=== PATIENT | female | born 1970 | race Caucasian/White ===

== ENCOUNTER 2016-11-01 18:37 | Emergency (ER) | payer OTHER ==
[~2016-11-01] VITALS: Ht 160 cm; Wt 76.5 kg
[2016-11-01 18:39] VITALS: Ht 160 cm; Wt 76.5 kg
--- NOTE | 2016-11-01 22:39 | ERA ---
ER Documentation Chief Complaint Date/Time DATE: 11/01/16 TIME: 22:38 Chief Complaint left breast pain HPI The patient is a 46-year-old female, presenting to the ER because of left breast pain intermittently for the last 2 weeks. She had a normal mammogram about a year ago, she recently had an ultrasound about a month ago that result is unclear She usually took aspirin which relieved the pain. She denies fever , chills, neck pain, chest pain with exertion or vomiting or diaphoresis, dyspnea, abdominal pain, vomiting, dysuria, diarrhea. She does not smoke nor drink Past medical/surgical history: None ROS All systems reviewed and are negative except as per history of present illness. Medications Home Meds Active Scripts Hydrocodone/Acetaminophen ([place] 5-325 Tablet) 1 Each Tablet, 1 TAB PO Q6H Y for PAIN, #7 TAB Prov:BETH GROVER MD 11/02/16 Ibuprofen* (Motrin*) 600 Mg Tab, 600 MG PO Q6H Y for PAIN AND OR ELEVATED TEMP, #20 TAB Prov:BETH GROVER MD 11/02/16 Allergies Allergies: Coded Allergies: No Known Allergy (Unverified , 11/01/16) Physical Exam Vitals Vital Signs Date Time Temp Pulse Resp B/P Pulse Ox O2 Delivery O2 Flow Rate FiO2 11/02/16 01:00 63 142/86 100 Room Air 11/02/16 00:00 65 144/68 99 Room Air 11/01/16 23:06 64 19 149/80 100 Room Air 11/01/16 18:39 99.4 70 20 143/75 99 Physical Exam Const: No acute distress. Head: Atraumatic. Eyes: Normal Conjunctiva. ENT: Normal External Ears, Nose and Mouth. Neck: Full range of motion. No meningismus. Resp: Clear to auscultation bilaterally. Cardio: Regular rate and rhythm, no murmurs. Left nipple is without any discharge, left breast is not erythematous nor warm to touch. However it is very tender therefore the exam is very limited and she did not want to continue Abd: Soft, non distended, normal bowel sounds, non tender. Skin: No petechiae or rashes. Back: No midline or flank tenderness. Ext: No cyanosis, or edema. Neur: Awake and alert. No focal deficit Psych: Normal Mood and Affect. Procedures/MDM EKG: Read by emergency physician Rate/Rhythm: Normal Sinus Rhythm 73 beats/min QRS, ST, T-waves: No ST elevation, no T inversion, LVH, nonspecific T abnormality Impression: Abnormal EKG [place] [id number] Radiology Main Line: [phone] DIAGNOSTIC IMAGING REPORT Patient: MARIA E HUSTON : 1970 Age: 46 Sex: F MR #: [id number] DOS: 11/01/16 0000 Ordering MD: BETH GROVER MD Location: E/R Room/Bed: PROCEDURE: CHEST - 1 VIEW CLINICAL INDICATION: 46-year-old female with chest pain. TECHNIQUE: A single frontal AP upright view of the chest was performed portably. The images were reviewed on a PACS workstation. COMPARISON: None. FINDINGS: There is a shallow inspiration accentuating the heart size. Accounting for this , the cardiomediastinal silhouette is mildly prominent. The lung apices are incompletely visualized. There is right lower lung zone subsegmental atelectasis. There is no evidence for an infiltrate. There is no evidence for congestive heart failure. There is no evidence for pneumothorax. Surgical clips are seen within the right upper quadrant from prior cholecystectomy. The osseous structures are intact. IMPRESSION: 1. Shallow inspiration with right lower lung zone subsegmental atelectasis. 2. Status post cholecystectomy. .Damir Clayton MD, MD Date Time Electronically viewed and signed by .Damir Clayton MD, on 11/02/2016 00:37 .M/ CC: BETH GROVER MD MEDICAL MAKING DECISION: The patient is a 46-year-old female, presenting with acute left breast pain of unclear etiology. The differential diagnoses considered include but are not limited to breast cancer, cellulitis, cyst Departure Diagnosis: Primary Impression: Breast pain in female Condition: Good Comments She was discharged with [place] and Motrin I discussed the findings with the patient. I advised the patient to follow-up with her it help desk technician in about 1-2 days, sooner if needed and return if any concern. The patient's blood pressure was elevated (>120/80) but appears stable without evidence of hypertension emergency or urgency. The patient was counseled about the risks of hypertension and urged to pursue outpatient monitoring and therapy within a week with their primary care physician. BETH GROVER MD Nov 01, 2016 22:39
[2016-11-01 23:06] VITALS: RESP 19
--- NOTE | 2016-11-02 00:38 | RADRPT ---
PROCEDURE: CHEST - 1 VIEW CLINICAL INDICATION: 46-year-old female with chest pain. TECHNIQUE: A single frontal AP upright view of the chest was performed portably. The images were reviewed on a PACS workstation. COMPARISON: None. FINDINGS: There is a shallow inspiration accentuating the heart size. Accounting for this, the cardiomediasti nal silhouette is mildly prominent. The lung apices are incompletely visualized. There is right lo wer lung zone subsegmental atelectasis. There is no evidence for an infiltrate. There is no eviden ce for congestive heart failure. There is no evidence for pneumothorax. Surgical clips are seen with in the right upper quadrant from prior cholecystectomy. The osseous structures are intact. IMPRESSION: 1. Shallow inspiration with right lower lung zone subsegmental atelectasis. 2. Status post cholecystectomy. .Damir Clayton MD, Date Time Electronically viewed and signed by .Damir Clayton MD, on 11/02/2016 00:37 .M/
[2016-11-02 01:00] VITALS: BP 142/86; PULSE 63
[2016-11-02] MEDS ORDERED: IBUP-1542 PO (01:01)
[2016-11-02] MEDS ORDERED: HYDR-906 PO (01:01)
[2016-11-02] MEDS ORDERED: ONDANSETRON (ODT) 4 MG TAB ODT ONE (01:08)
[2016-11-02] MEDS ORDERED: HYDROCODONE/APAP (5/325) TAB PO ONE (01:30)
== END 2016-11-02 01:37 | disposition home or self-care (01) ==
LOC: E/R 18:37
DX: N64.4 Mastodynia (principal)
CPT/HCPCS: 71010